=== PATIENT | female | born 1960 | race Caucasian/White ===

== ENCOUNTER → 2023-11-19 11:49 | Outpatient (REF) | payer OTHER, SELFPAY ==
[2023-11-19 16:08] LABS: Erythrocyte Sed Rate 13 mm/hour (0-20)
[2023-11-19 17:39] LABS: Ferritin 13.4 ng/ml (11.1-264.0)
[2023-11-19 18:10] LABS: Folate 5.6 ng/ml (2.76-20); Vitamin B12 866 pg/ml (239-931)
[2023-11-22 06:24] LABS: SSA 52 (Ro)(ENA) Ab, IgG 6 AU/mL (0-40); SSA 60 (Ro)(ENA) Ab, IgG 1 AU/mL (0-40); SSB (La)(ENA) Ab, IgG 24 AU/mL (0-40)
[2023-11-22 09:23] LABS: Zinc 81.6 ug/dL (60.0-120.0)
== END ==
LOC: HWLAB 11:49
PROVIDERS: ATTENDING PHYSICIAN Psychiatry & Neurology Neurology; FAMILY PHYSICIAN Emergency Medicine
DX: G43.109 Migraine with aura, not intractable, without status migrainosus (principal)
CPT/HCPCS: 36415; 82607; 82728; 82746; 84630; 85652; 86140; 86235